=== PATIENT | female | born 1955 | race Caucasian/White ===

== ENCOUNTER 2016-09-22 08:09 | Day surgery (SDC) | payer OTHER ==
[~2016-09-22] VITALS: Ht 152.4 cm; Wt 80.0 kg
[2016-09-22 09:03] VITALS: Ht 152.4 cm; Wt 80.0 kg
[2016-09-22] MEDS ORDERED: ATEN-51 PO (09:22)
[2016-09-22] MEDS ORDERED: BENA10TA48 PO (09:22)
[2016-09-22] MEDS ORDERED: [UNRECOGNIZED DRUG - OTHER] (09:22)
[2016-09-22 10:08] VITALS: BP 135/61; PULSE 60; RESP 20
[2016-09-22] MEDS ORDERED: MIDAZOLAM 1 MG/ML 2 ML INJ ONE ×2 (11:09)
[2016-09-22] MEDS ORDERED: FENTAnyl 50 MCG/ML VIAL ONE (11:09)
[2016-09-22 11:28] VITALS: BP 115/56; RESP 20
--- NOTE | 2016-09-23 05:05 | GILP ---
DATE OF PROCEDURE: PROCEDURE: Screening colonoscopy. POSTOPERATIVE DIAGNOSES: 1. Colonoscopy all the way to the cecum. 2. Diverticulosis of the colon. 3. Internal hemorrhoids. 4. No colon neoplasm was identified. INDICATION FOR THE PROCEDURE: Ms. Monica Ohara is a 61-year-old female patient who was scheduled fo r screening colonoscopy. The procedure and possible complications were well explained to the patient. She understood and con sented to the procedure. DESCRIPTION OF PROCEDURE: Under the influence of fentanyl and Versed, the colonoscope was carefully introduced in the rectum and under direct vision; it was advanced all the way to the cecum. FINDINGS: The patient had diverticulosis of the colon. She also had internal hemorrhoids. No colo n neoplasm was identified. The patient tolerated the procedure very well and there was no complication from the procedure. At the end of the procedures, she was awake with stable vital signs and she was discharged home to the care of her family. IMPRESSION: 1. Colonoscopy all the way to the cecum. 2. Diverticulosis of the colon. 3. Internal hemorrhoids. 4. No colon neoplasm was identified. PLAN: Next screening colonoscopy in 10 years. Dictated By: SHAYAN CLIFTON/MIK Conf#: [id number] DID#: [id number]
== END 2016-09-22 11:46 | disposition home or self-care (01) ==
LOC: GIL 08:09
PROVIDERS: ATTEND Internal Medicine Gastroenterology
DX: Z12.11 Encounter for screening for malignant neoplasm of colon (principal); K57.90 Diverticulosis of intestine, part unspecified, without perforation or abscess without bleeding; K64.8 Other hemorrhoids; I10 Essential (primary) hypertension
CPT/HCPCS: 45378; J2250; J3010